=== PATIENT | female | born 1985 | race Caucasian/White ===

== ENCOUNTER 2018-10-19 18:43 | Emergency (ER) | payer OTHER ==
[~2018-10-19] VITALS: Ht 165.1 cm; Wt 61.0 kg
[2018-10-19 18:58] VITALS: Ht 165.1 cm; Wt 61.0 kg
[2018-10-19] MEDS ORDERED: KETOROLAC 30 MG INJ IM STA (20:16)
[2018-10-19] MEDS ORDERED: IBUPROFEN 600 MG TAB PO ONE (21:00)
[2018-10-19] MEDS ORDERED: D-ME473S2 PO (22:07)
[2018-10-19] MEDS ORDERED: AZIT250T PO (22:07)
[2018-10-19] MEDS ORDERED: IBUP-1561 PO (22:07)
[2018-10-19 22:29] VITALS: BP 123/67; PULSE 89; RESP 20
--- NOTE | 2018-10-19 22:29 | ERD ---
ER Documentation Chief Complaint Chief Complaint CHEST WALL PAIN UPON COUGH X 1 WEEK. HPI 33-year-old female presents with her daughter with complaints of a productive cough for the past 6 days. She also reports some shortness of breath and chest wall pain, only when coughing. She also reports a fever of over 101 F and generalized body aches as well. Cough is productive in nature, worse at nighttime. She is a non-smoker. She is most concerned about her pneumonia and states her son was diagnosed with a 2 weeks ago.. ROS All systems reviewed and are negative except as per history of present illness. Medications Home Meds Active Scripts Azithromycin* (Zithromax*) 250 Mg Tablet, 250 MG PO .ZPACK DIRECTED, #6 TAB TAKE 500 MG (2 TABS) THE FIRST DAY THEN 250 MG (1 TAB) DAYS 2-5 Prov:TAVOIGRANTONIOANGLO PA-C 10/19/18 Dextromethorphan Hb-Promethazine Hcl* (Promethazine DM* Syrup) 473 Ml Syrup, 5 ML PO Q6 PRN for COUGH for 7 Days, ML Prov:TAVOIGRIKIANGLO PA-C 10/19/18 Ibuprofen* (Motrin*) 400 Mg Tab, 400 MG PO Q6H PRN for PAIN AND OR ELEVATED TEMP, #30 TAB Prov:RAULANGLO PA-C 10/19/18 Allergies Allergies: Coded Allergies: No Known Allergy (Unverified , 10/19/18) PMhx/Soc Medical and Surgical Hx: pt denies Medical Hx, pt denies Surgical Hx Hx Alcohol Use: No Hx Substance Use: No Hx Tobacco Use: No Smoking Status: Never smoker Physical Exam Vitals Vital Signs Date Temp Pulse Resp B/P (MAP) Pulse Ox O2 O2 Flow FiO2 Time Delivery Rate 10/19/18 98.8 111 18 132/84 98 18:58 (100) Physical Exam Const: No acute distress Head: Atraumatic Eyes: Normal Conjunctiva ENT: Normal External Ears, Nose and Mouth. + Mild posterior OP erythema. No tonsillar edema or exudates. Uvula midline. Bilateral TMs clear with good cone of light reflex. Neck: Full range of motion. No meningismus. Resp: Clear to auscultation bilaterally. No rhonchi, no wheezes, no rales. Good inspiration. Cardio: Regular rate and rhythm, no murmurs Abd: Soft, non tender, non distended. Normal bowel sounds Skin: No petechiae or rashes Back: No midline or flank tenderness Ext: No cyanosis, or edema Neur: Awake and alert Psych: Normal Mood and Affect Results 24 hrs Current Medications Medications Dose Sig/Radha Start Time Status Last (Trade) Ordered Route PRN Stop Time Admin Dose Reason Admin Ketorolac 30 mg ONCE STAT 10/19/18 DC Tromethamine IM 20:16 10/19/18 (Toradol) 20:37 Ibuprofen 600 mg ONCE ONCE 10/19/18 DC 10/19/18 (Motrin) PO 21:00 10/19/18 20:40 21:01 Procedures/MDM LABS & DIAGNOSTIC IMAGING: PROCEDURE: XR Chest. CLINICAL INDICATION: cough, sob, cp TECHNIQUE: Single frontal view of the chest was obtained COMPARISON: None FINDINGS: The heart and mediastinum are within normal limits. The lungs are clear. There is no pleural effusion or pneumothorax. The bones and soft tissue show no acute change. IMPRESSION: No definite abnormalities are identified. PROCEDURES: 12-lead EKG interpretation as interpeted by Dr. Casanova Sinus tachycardia with a rate of 111 beats per minute Normal axis Normal intervals No acute ST or T wave changes suggestive of acute ischemia or STEMI. ED COURSE: The patient was given ibuprofen The medication was well tolerated and the patient had market improvement in symptoms. The patient remained stable throughout ED course. MEDICAL DECISION MAKIN-year-old female presents with upper respiratory symptoms, likely viral etiology. She is nontoxic-appearing, well-hydrated. Her EKG showed sinus tachycardia, likely due to mild dehydration. I doubt MT, PE/DVT. Repeat vital signs were normal. Patient requested a chest x-ray that was negative for pneumonia. Her lung sounds are clear, no hypoxia, ENT exam unremarkable. I discussed this patient the symptoms are likely viral in etiology. She was most concerned about developing a pneumonia continually requested antibiotics. I discussed with patient antibiotics not appropriate for viral infection, however she was insistent. Rx for Zithromax is therefore provided. Recommend PCP follow-up 1 week, strict return precautions were discussed. PRESCRIPTIONS: Zithromax, Promethazine DM, ibuprofen SPECIALIST FOLLOW UP RECOMMENDED: None Patient has been advised to follow up with primary care in 1-2 days. Departure Diagnosis: Primary Impression: Upper respiratory infection URI type: unspecified URI Qualified Codes: J06.9 - Acute upper respiratory infection, unspecified Condition: Stable Patient Instructions: Preventing Common Respiratory Infections Referrals: [facility] YOU HAVE RECEIVED A MEDICAL SCREENING EXAM AND THE RESULTS INDICATE THAT YOU DO NOT HAVE A CONDITION THAT REQUIRES URGENT TREATMENT IN THE EMERGENCY DEPARTMENT. FURTHER EVALUATION AND TREATMENT OF YOUR CONDITION CAN WAIT UNTIL YOU ARE SEEN IN YOUR DOCTORS OFFICE WITHIN THE NEXT 1-2 DAYS. IT IS YOUR RESPONSIBILITY TO MAKE AN APPOINTMENT FOR FOLOW-UP CARE. IF YOU HAVE A PRIMARY DOCTOR --you should call your primary doctor and schedule an appointment IF YOU DO NOT HAVE A PRIMARY DOCTOR YOU CAN CALL OUR PHYSICIAN REFERRAL HOTLINE AT IF YOU CAN NOT AFFORD TO SEE A PHYSICIAN YOU CAN CHOSE FROM THE FOLLOW[facility] [address] [facility]. [facility] [address] [facility] [address] [facility] [address] [facility] [address] [facility]. [facility] [address] [facility]. [facility] YOU HAVE RECEIVED A MEDICAL SCREENING EXAM AND THE RESULTS INDICATE THAT YOU DO NOT HAVE A CONDITION THAT REQUIRES URGENT TREATMENT IN THE EMERGENCY DEPARTMENT. FURTHER EVALUATION AND TREATMENT OF YOUR CONDITION CAN WAIT UNTIL YOU ARE SEEN IN YOUR DOCTORS OFFICE WITHIN THE NEXT 1-2 DAYS. IT IS YOUR RESPONSIBILITY TO MAKE AN APPOINTMENT FOR FOLOW-UP CARE. IF YOU HAVE A PRIMARY DOCTOR --you should call your primary doctor and schedule and appointment IF YOU DO NOT HAVE A PRIMARY DOCTOR YOU CAN CALL OUR PHYSICIAN REFERRAL HOTLINE AT . IF YOU CAN NOT AFFORD TO SEE A PHYSICIAN YOU CAN CHOSE FROM THE FOLLOWING [facility]: [facility] [address] [place] [address] [facility] [address] [place] [address] [facility] [address] [place] [address] Additional Instructions: Do not take the antibiotics now. If symptoms do not improve after 1 week, then you can proceede with the antibiotics. In the meantime, you can take ibuprofen for any body aches or fevers. Also prescribing a cough syrup. Call your primary care doctor TOMORROW for an appointment during the next 2-4 days and bring all the information and medications prescribed. If the symptoms get worse and your provider is unavailable, return to the Emergency Department immediately. GLO FIERRO PA-C Oct 19, 2018 22:29
== END 2018-10-19 22:30 | disposition home or self-care (01) ==
LOC: FTE 18:43
DX: J06.9 Acute upper respiratory infection, unspecified (principal)
CPT/HCPCS: 71045; Z7610; 93005; J1885